=== PATIENT | female | born 1975 | race Two or more races ===

== ENCOUNTER 2017-10-01 16:35 | Emergency (ER) | payer MEDICAID, OTHER ==
--- NOTE | 2017-10-01 16:52 | EDPHY ---
H & P Time Seen by Provider: 10/01/17 16:43 HPI/ROS: CHIEF COMPLAINT: Right thumb laceration HISTORY OF PRESENT ILLNESS: 42-year-old [id number] female with up-to- date tetanus arrives via private vehicle complaining of accidental laceration to her right thumb palmar aspect when she was reaching the lead retail sales associate and lacerated the area gets a knife. No fractured objects such as fracture glass or ceramic. She is able to flex and extend without deficits. Full sensation. PHYSICAL EXAM (Prior to examination, patient consented to physical exam, hands were washed and my usual and customary physical exam procedures followed) 1) GENERAL: Well-developed, well-nourished, alert and oriented. Appears to be in no acute distress. 2) HEAD: Normocephalic 3) HEENT: sclera anicteric 4) LUNGS: Breathing comfortably. 5) SKIN: Right thumb palmar aspect proximal phalanx 2.5 cm well-demarcated linear laceration 6) MUSCULOSKELETAL: Flexor pollicis longus and flexor pollicis brevis function tested and is intact. Extension, flexion, abduction, abduction, opposition, reposition, tested and no deficits identified. 7) NEUROLOGIC: Full sensation and two-point discrimination intact Constitutional: Initial Vital Signs Temperature (C) 36.4 C 10/01/17 16:52 Heart Rate 72 10/01/17 16:52 Respiratory Rate 16 10/01/17 16:52 Blood Pressure 126/87 H 10/01/17 16:52 O2 Sat (%) 97 10/01/17 16:52 O2 Delivery Mode Room Air Allergies/Adverse Reactions: No Known Allergies Allergy (Unverified 10/01/17 17:29) Home Medications: Medication Instructions Recorded Cephalexin [Keflex] 500 mg PO TID 5 Days cap 10/01/17 MDM/Departure - MDM Procedures: Procedure: Laceration repair. I explained the indications, risks and benefits for both laceration repair and anesthetic administration. Verbal consent was obtained from the patient. The laceration on the right thumb was anesthetized using 0.5% bupivicaine without epinephrine. After anesthetic administered the patient was observed for a period of time and had no apparent adverse effects. The wound was cleaned, prepped, draped in normal sterile fashion and explored to its base. No foreign body seen, no foreign bodies palpated. There were no deep structures involved. No tendon injury was identified. The wound was repaired with 7 simple interrupted 5 O Prolene sutures. The wound repair was simple. The procedure was performed by myself. Patient has been informed that scarring will occur, although efforts have been made to minimize this. Procedure: Splint A Velcro thumb spica splint was applied by ER sonography technician. After application of the splint I returned and re-examined the patient. The splint was adequately immobilizing the joint and distal to the splint the patient's circulation and sensation were intact. Patient shows no signs of compartment syndrome. Was given orthopedic precautions. Medications Given: Discontinued Medications Diphtheria/Tetanus/Acell Pertussis (Boostrix) 0.5 ml IM .ONCE ONE Stop: 10/01/17 17:29 Last Admin: 10/01/17 17:57 Dose: 0.5 ml ED Course/Re-evaluation: Re-evaluation with serial exams. Although no definitive flexor deficits noted on her thumb, I have stressed the importance of follow-up with Hand surgery as occult injury is not ruled out. I am starting on prophylactic Keflex, given her hand surgery referral information, placed her in a splint. She feels comfortable being discharged. All questions and concerns addressed by myself. Care of patient under supervision of primary supervising physician Dr Yoder. - Depart Disposition: Home, Routine, Self-Care Clinical Impression: Laceration of right thumb Qualifiers: Encounter type: initial encounter Damage to nail status: without damage Foreign body presence: without foreign body Qualified Code(s): S61.011A - Laceration without foreign body of right thumb without damage to nail, initial encounter Condition: Good Instructions: Laceration (ED) Additional Instructions: Return to the ER if you develop redness, swelling, discharge, warmth to the wound, red streaks going up your arm, or any other symptoms that concern you. Regrese a la sonal de emergencia si desarrolla rojiza, inchazon, si drena, calor en la herida, rallas mendez hacia el brazo, o cualquier sintoma que le preocupe. Stand Alone Forms: Work Excuse Prescriptions: Cephalexin [Keflex] 500 mg PO TID 5 Days cap Referrals: Fadia Bee MD [Medical Doctor] - 2-3 days, call for appt. (Dr Bee is a hand surgeon) Print Language: Mexican
[2017-10-01 16:57] VITALS: BP 126/87
[2017-10-01] MEDS ORDERED: TDAP ADULT 0.5 ML INJ (BOOSTRIX) IM ONE (17:28)
== END 2017-10-01 17:55 | disposition home or self-care (01) ==
PROC: 0HQFXZZ Repair Right Hand Skin, External Approach (ICD-10-PCS; principal; 2017-10-01)
DX: S61.011A Laceration without foreign body of right thumb without damage to nail, initial encounter (principal); Z23 Encounter for immunization; W26.0XXA Contact with knife, initial encounter
CPT/HCPCS: L3807